=== PATIENT | male | born 1970 | race Two or more races ===

== ENCOUNTER 2024-12-12 10:18 | Outpatient (AMB) | payer BC, SELFPAY ==
--- NOTE | 2024-12-12 10:26 | MHC.PC.OV ---
Vital Signs 12/12/24 10:31 12/12/24 10:37 Height 5 ft 4 in Weight 148 lb 2 oz BMI 25.4 BP 142/84 H 130/82 Blood Pressure Location Lt brachial Lt brachial Position Sitting Sitting Respiration 14 Pulse 77 Pulse Source Pulse Oximeter Pulse Oximetry (%) 94 Oxygen Delivery Method Room Air Intake Visit Reasons: Est. care Intake Note: New patient visit Seafood Technology Specialist Required: No Seafood Technology Specialist Name: pt declined Allergies No Known Allergies Allergy (Verified 12/12/24 10:28) Tobacco use date assessed: 12/12/24 Dental Screening Dental Screen Date: 12/12/24 HPI HPI Comments History of Present Illness Details This is a 54-year-old male with a past medical history of tobacco use disorder presenting [facility]. He says it has been 8 or 10 years since he last had a primary care visit. He has smoked 1 pack per day for the past 25 years. He thinks about quitting, but he is not ready to make a plan to do this yet. We also discussed the LDCT. Patient declines. Denies coughing, wheezing, shortness of breath. He declines colonoscopy. Denies family history or personal history of colon cancer. Denies blood in his stools. Agreed to Cologuard. Ordered. Eye exam is up-to-date. He is going to schedule a dental exam. We reviewed vaccinations that he is due for including pneumonia vaccine, tetanus vaccine, influenza vaccine and shingles vaccine. Patient declines vaccinations against medical advice. He will have fasting lab work completed. On ROS patient says he did have dizziness 2 weeks ago when he went to work. He did not have anything to eat or drink in the morning. 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 He sat down and drank orange juice, and dizziness resolved. Denies chest pain, shortness of breath or palpitations. He was instructed to make sure he eats and drinks in the morning before going to work and follow up if he has recurrent symptoms. ROS: Constitutional: No unexplained weight loss, fever, chills, fatigue or night sweats. Eyes: No vision changes, blurry vision, double vision, eye pain, eye redness, eye discharge. ENT: No hearing loss, sneezing, congestion, runny nose or sore throat. Respiratory: No shortness of breath, cough or sputum production. Cardiovascular: No chest pain, chest pressure or chest discomfort. No palpitations or pedal edema. Gastrointestinal: No anorexia, nausea, vomiting or diarrhea. No abdominal pain or blood in stool. Genitourinary: No dysuria, hematuria, urinary frequency. Denies urinary hesitancy. Denies testicular pain, groin pain, masses or swelling. Neurologic: No headache, syncope, unilateral weakness, ataxia, numbness or tingling in the extremities. Musculoskeletal: No muscle pain, back pain, joint pain or swelling. Hematologic/Lymphatics: No bleeding or bruising. No painful lymph nodes. Skin: No rash or itching. Endocrine: No cold or heat intolerance. No polyuria or polydipsia. Psychiatric: No depression or anxiety. No SI/HI. Physical exam: Constitutional: Alert, in no distress. Head: Normocephalic. Eyes: Pupils are equal, round and reactive to light. Extraocular muscles intact. Ear, Nose and Throat: Canals clear. TMs normal. Normal nasal mucosa. No nasal discharge. No oral lesions. Neck: Supple, Full range of motion. No lymphadenopathy. No palpable thyroid masses. Respiratory: Clear to auscultation. Cardiovascular: S1 S2 regular. No murmurs. No carotid bruits. Gastrointestinal: Abdomen soft, non-tender, non-distended. Normal bowel sounds. No palpable masses. Neurologic: No focal neurological deficits. Symmetric patellar reflexes. Moves all extremities spontaneously. Sensation intact bilaterally. Skin: No rashes Musculoskeletal: No gross deformities. Normal range of motion. Extremities: Warm and well perfused. No clubbing, cyanosis or edema. 3+ peripheral pulses bilaterally. Psychiatric: Normal mood and affect [facility] Medical History (Updated 12/12/24 @ 11:16 by PARMINDER Farris) Tobacco use disorder Routine physical examination Dizziness Screening for cardiovascular condition Surgical History (Updated 12/12/24 @ 10:30 by Lorenza Bailon CMA) No pertinent past surgical history Family History (Updated 12/12/24 @ 10:31 by Lorenza Bailon CMA) Other Substance abuse Social History (Updated 12/12/24 @ 10:31 by Lorenza Bailon CMA) Housing: House Alcohol intake: current Patient Tobacco Use Status: Current everyday Tobacco user Cigarette Packs Per Day: 1 Years Smoked: 20 e-Cigarette/Vaping Use: Never Used service: No Current occupational status: employed Current occupation: [employer] Current occupational exposures/hazards: No Cognitive needs: No Hearing needs: No Vision needs: No Questionnaire PHQ-9 Over the last 2 weeks, how often have you been bothered by any of the following problems? 1. Little interest or pleasure in doing things: not at all 2. Feeling down, depressed, or hopeless: not at all 3. Trouble falling or staying asleep, or sleeping too much: several days 4. Feeling tired or having little energy: not at all 5. Poor appetite or overeating: not at all 6. Feeling bad about yourself - or that you are a failure or have let yourself or your family down: not at all 7. Trouble concentrating on things, such as reading the newspaper or watching television: not at all 8. Moving or speaking so slowly that other people could have noticed. Or the opposite - being so fidgety or restless that you have been moving around a lot more than usual: not at all 9. Thoughts that you would be better off or of hurting yourself in some way: not at all Total score: 1 Depression Screening Interpretation: Negative Depression Screening Done: Yes 67121 - PHQ-9 Billing: Yes Source: Developed by Drs. Alexis Ye, Trupti Horvath, Emerson Clemens and colleagues, with an educational carlos from [employer]. Thrive Questionnaire Date Thrive assessed: 12/12/24 I am a: Patient What is your living situation today?: I have a steady place to live Within the past 12 months, did the food you bought not last and you didn't have the money to get more?: I choose not to answer this question Within the past 12 months, did you worry whether your food would run out before you got money to buy more?: Often true Do you have trouble paying for medicines?: I choose not to answer this question Do you have trouble getting transportation to medical appointments?: No Do you have trouble paying your heating and electricity bill?: No Do you have trouble taking care of your child, family member or friend?: I choose not to answer this question Do you have trouble with day-to-day activities such as bathing, preparing meals, shopping, managing finances, etc.?: No Are you currently unemployed and looking for a job?: I choose not to answer this question Are you interested in more education?: No Currently or been in a relationship where the following occur: No concerns reported THRIVE Score: 1 AUDIT C Alcohol Use Questionnaire (AUDIT-C) 1. How often do you have a drink containing alcohol?: Monthly or less 2. How many drinks containing alcohol do you have on a typical day when you are drinking?: 1 or 2 3. How often do you have six or more drinks on one occasion?: Never Total Score: 1 RUBY-7 AMB Questionnaire RUBY-7 Date RUBY - 7 assessed: 12/12/24 Feeling nervous, anxious, or on edge: 0 = Not at all Not being able to stop or control worryin = Not at all Worrying too much about different things: 0 = Not at all Trouble relaxin = Not at all Being so restless that it is hard to sit still: 0 = Not at all Becoming easily annoyed or irritable: 0 = Not at all Feeling afraid as if something awful might happen: 0 = Not at all Total RUBY-7 score (0-4 normal; 5-9 mild; 10-14 moderate; 15-21 severe): 0 Source: Developed by Drs. Alexis Ye, Trupti Horvath, Emerson Clemens and colleagues, with an educational carlos from [employer]. RUBY-7 Assessment Billing RUBY-7 Assessment Tool: RUBY-7 Assessment 70890 Physical exam (Primary Care) Vital Signs: Last Vital Signs Pulse 77 12/12/24 10:31 Resp 14 12/12/24 10:31 BP 130/82 12/12/24 10:37 Pulse Ox 94 12/12/24 10:31 Oxygen Delivery Method Room Air 12/12/24 10:31 BMI result Body Mass Index 25.4 Tobacco/Smoking Status: Tobacco use Status Tobacco use date assessed 12/12/24 12/12/24 10:33 Patient Tobacco Use Status Current everyday Tobacco 12/12/24 10:33 e-Cigarette/Vaping Use Never Used 12/12/24 10:33 PHQ-9: PHQ-9 Score PHQ-9: Total score 1 12/12/24 10:50 Depression Screening Interpretation: Negative Thrive Assessment: Date of Thrive Assessment Date Thrive assessed 03/17/25 03/17/25 10:27 Currently or been in a relationship where the following occur: No concerns reported Coding Level of Care Code New Pt Prev Care 40-64y(68682) Diagnoses Routine physical examination Z00.00 Dizziness R42 Tobacco use disorder F17.200 Additional Codes RUBY-7 Assessment Billing - RUBY-7 Assessment Tool: RUBY-7 Assessment 50871 ([id number]) PHQ-9 - 75661 - PHQ-9 Billing: Yes ([id number]) Assessment & Plan Assessment & Plan (1) Routine physical examination: Code(s): Z00.00 - Encounter for general adult medical examination without abnormal findings Category: Medical Plan: Patient is seen today for a routine physical. As part of this visit we reviewed the following issues, which are considered and essential part of preventative health in this age group: - Screening for colon cancer - Discussed Prostate cancer screening - PSA ordered - Blood pressure screening - Cholesterol screening - Nutritional and exercise counseling - Counseling of injury prevention including fire prevention, smoke alarms and seat belt usage - Screening for depression - Recommendations about immunizations - Recommendation of an eye exam - Screening for substance abuse (2) Dizziness: Code(s): R42 - Dizziness and giddiness Category: Medical Plan: See HPI. (3) Tobacco use disorder: Code(s): F17.200 - Nicotine dependence, unspecified, uncomplicated Category: Medical Plan: We discussed the dangers of smoking and the patient is not interested in quitting at this time. See HPI. Plan Follow up in 1 year for a physical exam or sooner as needed. Orders: Orders Complete Blood Count no Diff Today R42 - Dizziness and giddiness, Z13.6 - Encounter for screening for cardiovascular disorders TSH reflex Free T4 Today R42 - Dizziness and giddiness, Z13.6 - Encounter for screening for cardiovascular disorders Lipid Panel Today E78.5 - Hyperlipidemia, unspecified, R42 - Dizziness and giddiness, Z13.6 - Encounter for screening for cardiovascular disorders Comprehensive Met. Panel Today R42 - Dizziness and giddiness, Z13.6 - Encounter for screening for cardiovascular disorders Prostate Specific Antigen Today R42 - Dizziness and giddiness, Z12.5 - Encounter for screening for malignant neoplasm of prostate, Z13.6 - Encounter for screening for cardiovascular disorders UA w Microscopic Today R39.9 - Unspecified symptoms and signs involving the genitourinary system Referrals Cologuard Test Z12.11 - Encounter for screening for malignant neoplasm of colon, Z12.12 - Encounter for screening for malignant neoplasm of rectum
[2024-12-12 10:31] VITALS: BP 142/84; PULSE 77; RESP 14; O2SAT 94; BMI 25.4
[2024-12-12 10:37] VITALS: BP 130/82
== END 2024-12-12 11:04 | disposition home or self-care (01) ==
LOC: HO.HMCFM 10:18
PROVIDERS: PCP Physician Assistant Medical; Visit Provider Physician Assistant Medical
DX: Z00.00 Encounter for general adult medical examination without abnormal findings (principal); R42 Dizziness and giddiness; F17.200 Nicotine dependence, unspecified, uncomplicated

== ENCOUNTER → 2024-12-12 10:18 | Outpatient (BNVA) | payer BC, SELFPAY | PROVIDERS: PCP Physician Assistant Medical; Visit Provider Physician Assistant Medical | DX: Z00.00 Encounter for general adult medical examination without abnormal findings (principal); R42 Dizziness and giddiness; F17.210 Nicotine dependence, cigarettes, uncomplicated | CPT/HCPCS: 96127 ==